=== PATIENT | male | born 1995 | race Caucasian/White ===

== ENCOUNTER 2017-06-16 11:10 | Inpatient (IN) | payer OTHER ==
[2017-06-16] VITALS (8 sets, daily range): BP systolic 119–131; BP diastolic 74–95; PULSE 65–88; TEMP 98.2–99.4
[~2017-06-16] VITALS: Ht 190.5 cm; Wt 71.4 kg
[2017-06-16] MEDS ORDERED: TOPROL XL 25MG25 MG PO (11:37)
[2017-06-17 00:14] VITALS: BP 133/76; PULSE 55; TEMP 98.6
[2017-06-17 04:53] VITALS: BP 137/75; PULSE 88; TEMP 98.1
[2017-06-17 08:00] VITALS: BP 120/65; PULSE 47; TEMP 97.4
[2017-06-17 16:49] VITALS: BP 134/74; PULSE 55; TEMP 98
[2017-06-17 20:29] VITALS: BP 136/81; PULSE 48; TEMP 98.8
[2017-06-18] VITALS (11 sets, daily range): BP systolic 117–135; BP diastolic 54–77; PULSE 41–60; TEMP 97.3–98.5
[2017-06-19] VITALS (8 sets, daily range): BP systolic 112–140; BP diastolic 59–74; PULSE 43–60; TEMP 97.2–98.6
[2017-06-20 05:34] VITALS: BP 126/72; PULSE 56; TEMP 98.6
[2017-06-20 08:05] VITALS: BP 144/80; PULSE 42; TEMP 98.2
[2017-06-20 11:12] VITALS: BP 141/74; PULSE 50; TEMP 98.2
[2017-06-20 16:13] VITALS: BP 140/69; PULSE 69; TEMP 98.5
[2017-06-20 20:00] VITALS: BP 127/66; PULSE 53; TEMP 98.8
[2017-06-21 01:12] VITALS: BP 135/67; PULSE 60; TEMP 98.1
[2017-06-21 03:58] VITALS: BP 129/83; PULSE 60; TEMP 98.4
[2017-06-21 08:38] VITALS: BP 140/84; PULSE 48; TEMP 98.5
[2017-06-21 11:50] VITALS: BP 129/81; PULSE 50; TEMP 97.4
[2017-06-21 16:35] VITALS: BP 135/70; PULSE 65; TEMP 98.3
[2017-06-21 19:44] VITALS: BP 137/69; PULSE 51; TEMP 98
[2017-06-22] VITALS (7 sets, daily range): BP systolic 117–135; BP diastolic 57–72; PULSE 46–69; TEMP 97.7–98.4
[2017-06-23] VITALS (13 sets, daily range): BP systolic 112–142; BP diastolic 57–84; PULSE 60–91; TEMP 97.4–98.6
[2017-06-23 06:54] LABS: BASO % 0.4 % (0.0-2.0); EOS # 0.2 (0.0-0.7); EOS % 2.6 % (0-4.0); GRAN # 5.5 (1.4-6.5); GRAN % 64.7 % (42.2-75.2); HEMATOCRIT 43.4 % (42.0-52.0); HEMOGLOBIN 14.8 g/dl (13.5-18.0); LYMPH # 2.2 (1.2-3.4); LYMPH % 25.7 % (20.0-51.0); MEAN CELL VOLUME 88 fl (80.0-100.0); MEAN CORPUSCULAR HEMOGLOBIN 30 pg (27.0-31.0); MEAN CORPUSCULAR HGB CONC 34 g/dl (33.0-37.0); MEAN PLATELET VOLUME 9.5 fl (7.4-10.4); MONO # 0.5 (0.1-0.6); PLATELET COUNT 189 K/mm3 (130-400); RED BLOOD COUNT 4.91 M/mm3 (4.20-5.60); REDCELL DISTRIBUTION WIDTH-CV 11.9 % (11.5-14.5)
[2017-06-23 07:17] LABS: CALCIUM 9.5 mg/dL (8.4-10.2); CREATININE, serum 0.88 mg/dL (0.66-1.25); POTASSIUM 4.9 mmol/L (3.4-5.0)
[2017-06-24 04:16] VITALS: BP 133/70; PULSE 65; TEMP 97.9
[2017-06-24 08:21] VITALS: BP 135/71; PULSE 54; TEMP 97.7
[2017-06-24 13:06] VITALS: BP 137/70; PULSE 59; TEMP 97.7
[2017-06-24 15:40] VITALS: BP 144/70; PULSE 92; TEMP 97.7
[2017-06-24 20:00] VITALS: BP 129/71; PULSE 77; TEMP 98.4
[2017-06-24 23:47] VITALS: BP 123/66; PULSE 58; TEMP 98.4
[2017-06-25 04:18] VITALS: BP 126/55; PULSE 54; TEMP 98.1
[2017-06-25 08:10] VITALS: BP 137/78; PULSE 64; TEMP 98.7
[2017-06-25 11:34] VITALS: BP 140/65; PULSE 66; TEMP 97.8
[2017-06-25 16:08] VITALS: BP 123/79; PULSE 78; TEMP 97.8
[2017-06-25 20:49] VITALS: BP 141/69; PULSE 61; TEMP 98.1
[2017-06-26 00:04] VITALS: BP 115/52; PULSE 94; TEMP 98.4
[2017-06-26 03:53] VITALS: BP 124/74; PULSE 64; TEMP 98.4
[2017-06-26 07:31] VITALS: BP 134/79; PULSE 56; TEMP 97.3
[2017-06-26 11:39] VITALS: BP 141/79; PULSE 57; TEMP 98.3
[2017-06-26 15:52] VITALS: BP 139/76; PULSE 72; TEMP 98.5
[2017-06-26 19:41] VITALS: BP 134/72; PULSE 83; TEMP 97.9
[2017-06-27 00:57] VITALS: BP 125/68; PULSE 72; TEMP 98.2
[2017-06-27 03:41] VITALS: BP 133/76; PULSE 61; TEMP 98
[2017-06-27 07:37] VITALS: BP 131/71; PULSE 68; TEMP 98.1
[2017-06-27 11:18] VITALS: BP 126/81; PULSE 85; TEMP 98.2
== END 2017-06-27 16:21 | disposition home or self-care (01) | DRG 164 ==
LOC: COL.ER 11:10 → MEDICAL 13:50 → SURG 13:50
PROVIDERS: Surgery
PROC: 0W9B30Z Drainage of Left Pleural Cavity with Drainage Device, Percutaneous Approach (ICD-10-PCS; 2017-06-16)
PROC: 0W9B30Z Drainage of Left Pleural Cavity with Drainage Device, Percutaneous Approach (ICD-10-PCS; 2017-06-18)
PROC: 0BBG4ZX Excision of Left Upper Lung Lobe, Percutaneous Endoscopic Approach, Diagnostic (ICD-10-PCS; 2017-06-23)
PROC: 0B5P4ZZ Destruction of Left Pleura, Percutaneous Endoscopic Approach (ICD-10-PCS; principal; 2017-06-23 11:30)
DX: J93.83 Other pneumothorax (principal); Q87.40 Marfan syndrome, unspecified; E44.0 Moderate protein-calorie malnutrition; Z68.1 Body mass index [BMI] 19.9 or less, adult; F17.210 Nicotine dependence, cigarettes, uncomplicated; J93.82 Other air leak
CPT/HCPCS: A7041; A7048; A9284; J1100; J1170; J1650; J1885; J2175; J2250; J2370; J2405; J2704; J3010; J7030; J7120; Q9967